=== PATIENT | male | born 1970 | race Two or more races ===

== ENCOUNTER 2017-05-08 06:59 | Inpatient (IN) | payer OTHER ==
[2017-05-08] VITALS (19 sets, daily range): BP systolic 96–141; BP diastolic 60–91
[~2017-05-08] VITALS: Ht 170.2 cm; Wt 51.7 kg
[2017-05-08] MEDS ORDERED: IPRATRPIUM/ALBUTEROL 0.5/2.5MG 3 ML NEBU. NEB ONE (07:15)
--- NOTE | 2017-05-08 07:32 | PHYS DOC ---
Past Medical History Past Medical History: Diabetes-Type II Past Surgical History: No Surgical History Alcohol Use: Occasionally Drug Use: None Adult General Chief Complaint Chief Complaint: SHORTNESS OF BREATH HPI HPI Patient is a 46 year old male who presents with shortness of breath, chest pain. He states his symptoms started about 10 days ago on when he came home from work and said he didn't feel well all day long. He's been complaining about some right-sided rib/lung pain and back pain. He denied any nausea vomiting or diarrhea. He states he feels short of breath. He's been having a nonproductive cough for the last several days. He denies any hemoptysis. He denies any tobacco abuse history or alcohol abuse. He states he does drink but he drinks about 12 beers in a week. He hasn't done that for over the last 2 weeks. He is brought in by his family he states that he was diagnosed with possible pneumonia several months ago. According family is also been urinating frequently. His sister diagnosed him with diabetes because she has diabetes and she checked his sugars and is been over 200 recently. According family he refuses to go to a physician and hasn't seen one for some time. Review of Systems Review of Systems Constitutional: Denies fever or chills [] Eyes: Denies change in visual acuity, redness, or eye pain [] HENT: Denies nasal congestion or sore throat [] Respiratory: Positive for shortness of breath Cardiovascular: No additional information not addressed in HPI [] GI: Denies abdominal pain, nausea, vomiting, bloody stools or diarrhea [] : Denies dysuria or hematuria [] Musculoskeletal: Denies back pain or joint pain [] Integument: Denies rash or skin lesions [] Neurologic: Denies headache, focal weakness or sensory changes [] Endocrine: Denies polyuria or polydipsia [] Current Medications Current Medications Current Medications Medications (Trade) Dose Ordered Sig/Angelina Start Time Stop Time Status Last Admin Dose Admin Albuterol/ Ipratropium (Duoneb) 3 ml 1X ONCE 05/08/17 07:15 05/08/17 07:17 DC 05/08/17 07:23 3 ML Allergies Allergies Allergies Coded Allergies Type Severity Reaction Last Updated Verified No Known Drug Allergies 05/08/17 No Physical Exam Physical Exam Constitutional: Well developed, well nourished, no acute distress, non-toxic appearance. [] HENT: Normocephalic, atraumatic, bilateral external ears normal, oropharynx moist, no oral exudates, nose normal. [] Eyes: PERRLA, EOMI, conjunctiva normal, no discharge. [] Neck: Normal range of motion, no tenderness, supple, no stridor. [] Cardiovascular:Heart rate regular rhythm, tachycardic, no murmur [] Lungs & Thorax: Tachypnea with expiratory wheezing on the left Abdomen: Bowel sounds normal, soft, no tenderness, no masses, no pulsatile masses. [] Skin: Warm, dry, no erythema, no rash. [] Back: No tenderness, no CVA tenderness. [] Extremities: No tenderness, no cyanosis, no clubbing, ROM intact, no edema. [] Neurologic: Alert and oriented X 3, normal motor function, normal sensory function, no focal deficits noted. [] Psychologic: Affect normal, judgement normal, mood normal. [] Current Patient Data Vital Signs Vital Signs Date Time Temp Pulse Resp B/P (MAP) Pulse Ox O2 Delivery O2 Flow Rate FiO2 05/08/17 07:33 99 Room Air 05/08/17 07:04 97.6 118 32 151/90 (110) 97.6 Lab Values Laboratory Tests Test 05/08/17 07:15 05/08/17 07:20 05/08/17 07:45 O2 Saturation 97 % (92-99) Arterial Blood pH 7.14 (7.35-7.45) *L Arterial Blood pCO2 at Patient Temp < 15 mmHg (35-46) *L Arterial Blood pO2 at Patient Temp 104 mmHg (75-108) Arterial Blood HCO3 4 mmol/L (21-28) L Arterial Blood Base Excess -23 mmol/L (-3-3) L Oxyhemoglobin 96.6 % Methemoglobin 0.4 % (0.0-1.9) Carbon Monoxide, Quantitative 0.1 % (0.0-1.9) FiO2 21 White Blood Count 38.7 x10^3/uL (4.0-11.0) H Red Blood Count 5.26 x10^6/uL (4.30-5.70) Hemoglobin 15.4 g/dL (13.0-17.5) Hematocrit 47.4 % (39.0-53.0) Mean Corpuscular Volume 90 fL (79-100) Mean Corpuscular Hemoglobin 29 pg (25-35) Mean Corpuscular Hemoglobin Concent 33 g/dL (31-37) Red Cell Distribution Width 14.3 % (11.5-14.5) Platelet Count 696 x10^3/uL (140-400) H Neutrophils (%) (Auto) 93 % (31-73) H Lymphocytes (%) (Auto) 4 % (24-48) L Monocytes (%) (Auto) 3 % (0-9) Eosinophils (%) (Auto) 0 % (0-3) Basophils (%) (Auto) 1 % (0-3) Neutrophils # (Auto) 36.1 x10^3uL (1.8-7.7) H Lymphocytes # (Auto) 1.3 x10^3/uL (1.0-4.8) Monocytes # (Auto) 1.1 x10^3/uL (0.0-1.1) Eosinophils # (Auto) 0.0 x10^3/uL (0.0-0.7) Basophils # (Auto) 0.2 x10^3/uL (0.0-0.2) Platelet Estimate Pending Prothrombin Time 16.2 SEC (11.7-14.0) H Prothrombin Time INR 1.4 (0.8-1.1) H Sodium Level 130 mmol/L (136-145) L Potassium Level 3.0 mmol/L (3.5-5.1) L Chloride Level 92 mmol/L (98-107) L Carbon Dioxide Level 7 mmol/L (21-32) *L Anion Gap 31 (6-14) H Blood Urea Nitrogen 19 mg/dL (8-26) Creatinine 1.2 mg/dL (0.7-1.3) Estimated GFR (Cockcroft-Gault) 65.8 Glucose Level 351 mg/dL (70-99) H Lactic Acid Level 2.6 mmol/L (0.4-2.0) H Calcium Level 10.7 mg/dL (8.5-10.1) H Phosphorus Level 3.5 mg/dL (2.6-4.7) Magnesium Level 2.3 mg/dL (1.8-2.4) Total Bilirubin 0.5 mg/dL (0.2-1.0) Direct Bilirubin 0.1 mg/dL (0.0-0.2) Aspartate Amino Transferase (AST) 13 U/L (15-37) L Alanine Aminotransferase (ALT) 11 U/L (16-63) L Alkaline Phosphatase 291 U/L (46-116) H Creatine Kinase 36 U/L (39-308) L Creatine Kinase MB (Mass) < 0.5 ng/mL (0.0-3.6) Creatine Kinase MB Relative Index % (0-4) Troponin I Quantitative < 0.017 ng/mL (0.000-0.055) VP-Bji-X-Type Natriuretic Peptide 318 pg/mL (0-124) H Total Protein 9.7 g/dL (6.4-8.2) H Albumin 2.2 g/dL (3.4-5.0) L Lipase 3223 U/L (73-393) H Thyroid Stimulating Hormone (TSH) 0.884 uIU/mL (0.358-3.74) Glucose (Fingerstick) 346 mg/dL (70-99) H Laboratory Tests 05/08/17 07:20 Laboratory Tests 05/08/17 07:20 EKG EKG EKG shows sinus tachycardia 313 bpm without any concerning ST elevations or T- wave inversions, diffuse artifact noted, QTC 439 ms, normal axis, as interpreted by me. Radiology/Procedures Radiology/Procedures [facility] [address] [place] [place], [place] [id number] IMAGING REPORT Signed PATIENT: KRISTYN EWING ACCOUNT: [id number] : 1970 LOCATION: ER AGE: 46 SEX: M EXAM STATUS: PRE ER ORD. PHYSICIAN: CHAYO CARABALLO MD REASON: soa PROCEDURE: PORTABLE CHEST 1V AP portable chest radiograph 05/08/2017 Clinical History: Shortness of breath since earlier today. Diabetes. An AP portable erect digital radiograph of the chest was obtained. No previous studies are available for comparison. The cardiac and mediastinal silhouettes are within normal limits in size and duration. Confluent infiltrates are seen involving the left upper lobe and right lower lobe. No pneumothorax or pleural effusion is seen. The osseous structures are grossly intact. Impression: Areas of infiltrate are seen involving the left upper lobe and right lower lobe. DICTATED and SIGNED BY: KAELA PACHECO MD DATE: 05/08/17 0756 CC: CHAYO CARABALLO MD ~ Impressions: DKA Atypical pneumonia New Diagnoses of diabetes Course & Med Decision Making Course & Med Decision Making Pertinent Labs and Imaging studies reviewed. (See chart for details) She presents with tachypnea breathing gradient 30 times a minute. ABG shows pH is 7.13, PCO2 of 11, bicarbonate 3. His sugar is greater than 300 on his Accu- Chek. With greater than 80 ketones in his urine. His chest x-ray is consistent with atypical pneumonia. We'll start Azo throat, Rocephin, and the DKA protocol with IV insulin. I did order 1 L normal saline in addition to the DKA protocol. He is being admitted to the ICU in stable but critical condition at this time. Spoke with Dr. Lopez regarding the patient's clinical story, labs value, x-ray and vitals. Critical care time: greater than 55 minutes of critical care time was used on this patient excluding procedures. Dragon Disclaimer Dragon Disclaimer This electronic medical record was generated, in whole or in part, using a voice recognition dictation system. Departure Departure Impression: Primary Impression: DKA (diabetic ketoacidosis) Disposition: ADMITTED INPATIENT Admitting Physician: Crystal Lopez Condition: GUARDED Problem Qualifiers Primary Impression: DKA (diabetic ketoacidosis) Diabetes mellitus type: other specified (including FLY) Diabetes mellitus complication detail: without coma Qualified Codes: E13.10 - Other specified diabetes mellitus with ketoacidosis without coma CHAYO CARABALLO MD May 08, 2017 07:32
[2017-05-08 07:44] LABS: INR 1.4 (0.8-1.1); PROTHROMBIN TIME PATIENT 16.2 SEC (11.7-14.0)
[2017-05-08 07:48] LABS: BASO # 0.2 x10^3/uL (0.0-0.2); BASO % 1 % (0-3); EOS % 0 % (0-3); HEMATOCRIT 47.4 % (39.0-53.0); HEMOGLOBIN 15.4 g/dL (13.0-17.5); LYMPH # 1.3 x10^3/uL (1.0-4.8); LYMPH % 4 % (24-48); MEAN CORPUSCULAR HEMOGLOBIN 29 pg (25-35); MEAN CORPUSCULAR HGB CONC 33 g/dL (31-37); MEAN CORPUSCULAR VOLUME 90 fL (79-100); MONO % 3 % (0-9); NEUT % 93 % (31-73); PLATELET COUNT 696 x10^3/uL (140-400); RED BLOOD COUNT 5.26 x10^6/uL (4.30-5.70); RED CELL DISTRIBUTION WIDTH 14.3 % (11.5-14.5); WHITE BLOOD COUNT 38.7 x10^3/uL (4.0-11.0)
[2017-05-08 07:49] LABS: ALBUMIN 2.2 g/dL (3.4-5.0); CALCIUM 10.7 mg/dL (8.5-10.1); CREATININE 1.2 mg/dL (0.7-1.3); DIRECT BILIRUBIN 0.1 mg/dL (0.0-0.2); GFR 65.8; MAGNESIUM 2.3 mg/dL (1.8-2.4); TOTAL BILIRUBIN 0.5 mg/dL (0.2-1.0); TOTAL PROTEIN 9.7 g/dL (6.4-8.2)
[2017-05-08] MEDS ORDERED: IV NORMAL SALINE 1000ML BAG 1,000 ML IV SCH (07:52)
[2017-05-08] MEDS ORDERED: IV 1/2 NORMAL SALINE 1,000 ML IV SCH (07:53)
[2017-05-08] MEDS: IV 1/2 NORMAL SALINE 1,000 ML IV SCH ×2 (07:55→11:55)
[2017-05-08 07:57] LABS: CKMB MASS < 0.5 ng/mL (0.0-3.6); CREATINE KINASE 36 U/L (39-308)
[2017-05-08] MEDS ORDERED: AZITHRMYCN 500MG IVPB FOR OMNI 250 ML IV ONE (08:00)
[2017-05-08] MEDS ORDERED: IV NORMAL SALINE 1000ML BAG 1,000 ML IV ONE (08:00)
[2017-05-08] MEDS ORDERED: INSULIN,REGULAR 150 UNIT DRIP 150 ML IV ONE (08:00)
[2017-05-08] MEDS ORDERED: POTASSIUM CHLORIDE 10MEQ 100 ML IV PRN ×2 (08:00)
[2017-05-08] MEDS ORDERED: INSULIN REGULAR VIAL 150 UNIT in 0.9 % SODIUM CHLORIDE 150ML 150 ML IV PRN (08:00)
--- NOTE | 2017-05-08 08:01 | RAD ---
AP portable chest radiograph 05/08/2017 Clinical History: Shortness of breath since earlier today. Diabetes. An AP portable erect digital radiograph of the chest was obtained. No previous studies are available for comparison. The cardiac and mediastinal silhouettes are within normal limits in size and duration. Confluent infiltrates are seen involving the left upper lobe and right lower lobe. No pneumothorax or pleural effusion is seen. The osseous structures are grossly intact. Impression: Areas of infiltrate are seen involving the left upper lobe and right lower lobe.
[2017-05-08 08:24] LABS: BASE EXCESS COOX -23 mmol/L (-3-3); CARBON MONOXIDE 0.1 % (0.0-1.9); HCO3 COOX 4 mmol/L (21-28); METHEMOGLOBIN 0.4 % (0.0-1.9); OXYHEMOGLOBIN 96.6 %; PO2 COOX 104 mmHg (75-108); SAT O2 COOX 97 % (92-99)
[2017-05-08] MEDS ORDERED: ONDANSETRON PF 4 MG/2 ML VIAL. IV PRN (08:30)
[2017-05-08] MEDS: POTASSIUM CHLORIDE 10MEQ 100 ML IV PRN ×4 (08:40→13:10)
[2017-05-08 09:10] LABS: PH COOX 7.14 (7.35-7.45)
[2017-05-08 09:11] LABS: FIO2 COOX 21; PCO2 COOX < 15 mmHg (35-46)
[2017-05-08 09:17] LABS: BILIRUBIN,URINE NEGATIVE (NEG); GLUCOSE,URINE >=1000 mg/dL (NEG); NITRITE,URINE NEGATIVE (NEG); PROTEIN,URINE 100 mg/dL (NEG-TRACE); UROBILINOGEN,URINE 0.2 mg/dL (0.2 mg/dL)
[2017-05-08 09:23] LABS: BARBITURATES NEG (NEG); BENZODIAZEPINES NEG (NEG); CANNABINOIDS NEG (NEG); COCAINE NEG (NEG); METHADONE NEG (NEG); OPIATES NEG (NEG); PHENCYCLIDINE NEG (NEG)
[2017-05-08 09:40] LABS: BACTERIA,URINE FEW /HPF (0-FEW); SQUAMOUS EPITHELIAL CELL,UR FEW /LPF
[2017-05-08] MEDS: LISINOPRIL 10 MG TABLET PO SCH (11:00)
--- NOTE | 2017-05-08 11:17 | HP ---
ADMIT DATE: 05/08/2017 CHIEF COMPLAINT: Shortness of breath. HISTORY OF PRESENT ILLNESS: The patient is a 46-year-old who presented to the Emergency Room with shortness of breath and chest pain. His symptoms started about 10 days ago, localized more on the right side of his rib cage as well as towards the back. He has shortness of breath, especially with breathing, has a nonproductive cough but without any sputum production or hemoptysis. No sick contacts at home. Does not smoke. In addition, family relates that his sister checked his blood sugar as she is diabetic and found his to be over 200 recently. The patient apparently refused to see a physician. In the ER, he was found with diabetic ketoacidosis and therefore admitted to the ICU on insulin drip. PAST MEDICAL HISTORY: Diabetes. FAMILY HISTORY: Sister with diabetes. SOCIAL HISTORY: Lives with family. Denies tobacco or drug use. Drinks admittedly 12 beers. ALLERGIES: No known drug allergies. MEDICATIONS: None. REVIEW OF SYSTEMS: The patient currently asleep and unable to answer. PHYSICAL EXAMINATION: VITAL SIGNS: Today, show a blood pressure of 162/104, heart rate at 100, respiratory rate at 35. GENERAL: This is a malnourished 46-year-old gentleman, sleeping peacefully, in no acute distress. HEENT: Shows no scleral icterus. NECK: Supple. LUNGS: Clear. HEART: Regular rate and rhythm, mildly tachycardic. ABDOMEN: Has positive bowel sounds, soft, nontender. EXTREMITIES: Show no edema. SKIN: Warm, soft and dry without any rash. LABORATORY DATA: CBC with a WBC of 38.7, hemoglobin 15.4, platelets of 696, differential with 93% neutrophils. Chemistries with a BUN and creatinine of 19 and 1.2, sodium 130, potassium 3.0, carbon dioxide at 7, lactate at 2.6. LFTs with normal transaminases, alkaline phosphatase at 291, albumin at 2.2. Troponin is negative. Tox screen negative. UA with greater than 1000 glucose. IMAGING: Chest x-ray, areas of infiltrates seen in the left upper lobe and right lower lobe. ASSESSMENT AND PLAN: The patient is a 46-year-old gentleman, presenting with respiratory symptoms and signs of bilateral pneumonia. We will start him on Levaquin. Incidentally, he is also found with diabetic ketoacidosis. We will start him on insulin drip and diabetic ketoacidosis protocol in the intensive care unit. Serial labs will be obtained. He also has accelerated hypertension, untreated. We will start him on lisinopril as well. For prophylaxis, he will be started on Lovenox subQ for now. MANOLO VARELA MD DR: ALLAN/nts JOB#: [id number] / [id number] IGOR
--- NOTE | 2017-05-08 12:12 | EKG ---
[facility] [address] [place] [address] Test Date: 2017-05-08 Test Time: 07:22:18 Pat Name: KRISTYN EWING Department: Room: 109 1 Gender: M Adjunct Political Science Instructor: : 1970 Requested By: CHAYO CARABALLO Order Number: [id number] Reading MD: Ger Aggarwal Measurements Intervals [place] Rate: 113 P: 68 [place]: 110 QRS: 62 QRSD: 104 T: 90 QT: 316 QTc: 439 Interpretive Statements SINUS TACHYCARDIA Electronically Signed On 05-17-2017 10:28:34 CDT by Ger Aggarwal
[2017-05-08 12:25] LABS: PLT ESTIMATE INCREASED (ADEQUATE)
[2017-05-08 12:39] LABS: ALBUMIN 1.9 g/dL (3.4-5.0); ALBUMIN/GLOBULIN RATIO 0.3 (1.0-1.7); CALCIUM 9.8 mg/dL (8.5-10.1); CREATININE 1.1 mg/dL (0.7-1.3); GFR 72.7; TOTAL BILIRUBIN 0.4 mg/dL (0.2-1.0); TOTAL PROTEIN 8.5 g/dL (6.4-8.2)
[2017-05-08 12:49] LABS: POTASSIUM 2.5 mmol/L (3.5-5.1)
[2017-05-08] MEDS ORDERED: fentaNYL PF VIAL 100 MCG/2 ML VIAL ONE ×2 (15:24)
[2017-05-08] MEDS: POTASSIUM CHLORIDE 10MEQ 100 ML IV SCH ×4 (17:37→21:04)
[2017-05-08 18:23] LABS: ALBUMIN 1.6 g/dL (3.4-5.0); ALBUMIN/GLOBULIN RATIO 0.3 (1.0-1.7); CALCIUM 9.6 mg/dL (8.5-10.1); CREATININE 0.8 mg/dL (0.7-1.3); TOTAL BILIRUBIN 0.2 mg/dL (0.2-1.0); TOTAL PROTEIN 7.3 g/dL (6.4-8.2)
[2017-05-08 18:29] LABS: POTASSIUM 2.1 mmol/L (3.5-5.1)
[2017-05-08] MEDS ORDERED: INSULIN,REGULAR 150 UNIT DRIP 150 ML IV PRN (18:45)
[2017-05-08] MEDS ORDERED: METF500T4 PO (19:26)
[2017-05-08] MEDS: IV DEXTROSE 5 %-0.45 % NACL 1,000 ML IV SCH (21:08)
[2017-05-08 22:14] LABS: ANION GAP 14 (6-14); BLOOD UREA NITROGEN 11 mg/dL (8-26); CALCIUM 9.1 mg/dL (8.5-10.1); CARBON DIOXIDE 16 mmol/L (21-32); CHLORIDE 106 mmol/L (98-107); CREATININE 0.7 mg/dL (0.7-1.3); GFR 122.5; GLUCOSE 205 mg/dL (70-99); MAGNESIUM 1.9 mg/dL (1.8-2.4); SODIUM 136 mmol/L (136-145)
[2017-05-08 22:16] LABS: POTASSIUM 1.9 mmol/L (3.5-5.1)
[2017-05-08 22:27] LABS: PHOSPHORUS < 0.5 mg/dL (2.6-4.7)
[2017-05-08] MEDS ORDERED: POTASSIUM PHOSPHATE DIBASIC 13.6 MMOL in IV NORMAL SALINE 250ML 250 ML IV ONE (23:00)
[2017-05-08] MEDS ORDERED: POTASSIUM CHLORIDE 20 MEQ TABLET.ER. PO ONE (23:30)
[2017-05-09] VITALS (19 sets, daily range): BP systolic 94–117; BP diastolic 52–82
[2017-05-09] MEDS: IV DEXTROSE 5 %-0.45 % NACL 1,000 ML IV SCH ×2 (00:44→05:48)
[2017-05-09] MEDS ORDERED: POTASSIUM PHOSPHATE DIBASIC 13.6 MMOL in IV NORMAL SALINE 250ML 250 ML IV ONE (01:00)
[2017-05-09 04:30] LABS: BASO # 0.1 x10^3/uL (0.0-0.2); BASO % 0 % (0-3); EOS % 0 % (0-3); HEMATOCRIT 38.3 % (39.0-53.0); HEMOGLOBIN 12.7 g/dL (13.0-17.5); LYMPH # 0.6 x10^3/uL (1.0-4.8); LYMPH % 2 % (24-48); MEAN CORPUSCULAR HEMOGLOBIN 28 pg (25-35); MEAN CORPUSCULAR HGB CONC 33 g/dL (31-37); MEAN CORPUSCULAR VOLUME 85 fL (79-100); MONO % 5 % (0-9); NEUT % 93 % (31-73); PLATELET COUNT 485 x10^3/uL (140-400); RED BLOOD COUNT 4.51 x10^6/uL (4.30-5.70); WHITE BLOOD COUNT 30.5 x10^3/uL (4.0-11.0)
[2017-05-09 04:49] LABS: CALCIUM 9.3 mg/dL (8.5-10.1); CREATININE 0.5 mg/dL (0.7-1.3); GFR 180.6
[2017-05-09 04:53] LABS: MAGNESIUM 1.9 mg/dL (1.8-2.4); PHOSPHORUS 1.1 mg/dL (2.6-4.7)
[2017-05-09] MEDS: POTASSIUM CHLORIDE 10MEQ 100 ML IV SCH ×7 (05:47→23:50)
[2017-05-09] MEDS: POTASSIUM CHLORIDE 20 MEQ TABLET.ER. PO SCH ×2 (06:00→06:01)
[2017-05-09] MEDS ORDERED: SODIUM PHOSPHATE 20 MMOL in IV DEXTROSE 5% 250 ML IV ONE (06:00)
--- NOTE | 2017-05-09 08:52 | PDOC ---
PROGRESS NOTES Chief Complaint Chief Complaint Bilat PNA DKA ASSESSMENT AND PLAN: 1. PNA: bilat infiltrates. on levaquin. 2. Sepsis: severe leukocytosis, mild tachycardia improving. 3. DKA: CO2 recovering. BG well controlled. switch to levemir and ISS. sister confirms that he had beens started on metformin 500 bid. 4. Accelerated HTN: at POA, now welll controlled on ELINA-I 5. Hypokalemia: severe. aggressive PO repletion, recheck in PM 6. Prophylaxis: lovenox History of Present Illness History of Present Illness feels better, no SOB. gen weak. Vitals Vitals Vital Signs Date Time Temp Pulse Resp B/P (MAP) Pulse Ox O2 Delivery O2 Flow Rate FiO2 05/09/17 08:00 97.8 95 30 109/75 (86) 98 Room Air 97.8 05/09/17 05:00 3.0 Physical Exam General: Alert, Oriented X3, Cooperative, No acute distress Heart: Regular rate Lungs: Crackles Abdomen: Normal bowel sounds, Soft, No tenderness Extremities: No edema Skin: No rashes Labs LABS Laboratory Tests Test 05/08/17 09:09 05/08/17 09:37 05/08/17 11:10 05/08/17 11:30 Urine Collection Type Unknown Urine Color Yellow Urine Clarity Clear Urine pH 6.0 Urine Specific [place] 1.025 Urine Protein 100 mg/dL (NEG-TRACE) Urine Glucose (UA) >=1000 mg/dL (NEG) Urine Ketones (Stick) >=80 mg/dL (NEG) Urine Blood Moderate (NEG) Urine Nitrite Negative (NEG) Urine Bilirubin Negative (NEG) Urine Urobilinogen Dipstick 0.2 mg/dL (0.2 mg/dL) Urine Leukocyte Esterase Negative (NEG) Urine RBC 11-20 /HPF (0-2) Urine WBC 5-10 /HPF (0-4) Urine Squamous Epithelial Cells Few /LPF Urine Bacteria Few /HPF (0-FEW) Urine Opiates Screen Neg (NEG) Urine Methadone Screen Neg (NEG) Urine Barbiturates Neg (NEG) Urine Phencyclidine Screen Neg (NEG) Urine Amphetamine/Methamphetamine Neg (NEG) Urine Benzodiazepines Screen Neg (NEG) Urine Cocaine Screen Neg (NEG) Urine Cannabinoids Screen Neg (NEG) Urine Ethyl Alcohol Neg (NEG) Glucose (Fingerstick) 128 mg/dL (70-99) 255 mg/dL (70-99) Lactic Acid Level 1.9 mmol/L (0.4-2.0) Test 05/08/17 12:10 05/08/17 13:01 05/08/17 14:20 05/08/17 14:26 Sodium Level 134 mmol/L (136-145) Potassium Level 2.5 mmol/L (3.5-5.1) Chloride Level 98 mmol/L (98-107) Carbon Dioxide Level 9 mmol/L (21-32) Anion Gap 27 (6-14) Blood Urea Nitrogen 18 mg/dL (8-26) Creatinine 1.1 mg/dL (0.7-1.3) Estimated GFR (Cockcroft-Gault) 72.7 BUN/Creatinine Ratio 16 (6-20) Glucose Level 267 mg/dL (70-99) Calcium Level 9.8 mg/dL (8.5-10.1) Total Bilirubin 0.4 mg/dL (0.2-1.0) Aspartate Amino Transf (AST/SGOT) 18 U/L (15-37) Alanine Aminotransferase (ALT/SGPT) 11 U/L (16-63) Alkaline Phosphatase 246 U/L (46-116) Total Protein 8.5 g/dL (6.4-8.2) Albumin 1.9 g/dL (3.4-5.0) Albumin/Globulin Ratio 0.3 (1.0-1.7) Glucose (Fingerstick) 226 mg/dL (70-99) 207 mg/dL (70-99) Troponin I Quantitative < 0.017 ng/mL (0.000-0.055) Ethyl Alcohol Level < 10 mg/dL (0-10) Test 05/08/17 14:30 05/08/17 15:49 05/08/17 16:54 05/08/17 17:55 Serum Osmolality 291 mOsm/Kg (279-304) 287 mOsm/Kg (279-304) Glucose (Fingerstick) 211 mg/dL (70-99) 234 mg/dL (70-99) Sodium Level 138 mmol/L (136-145) Potassium Level 2.1 mmol/L (3.5-5.1) Chloride Level 104 mmol/L (98-107) Carbon Dioxide Level 15 mmol/L (21-32) Anion Gap 19 (6-14) Blood Urea Nitrogen 15 mg/dL (8-26) Creatinine 0.8 mg/dL (0.7-1.3) Estimated GFR (Cockcroft-Gault) 105.0 BUN/Creatinine Ratio 19 (6-20) Glucose Level 225 mg/dL (70-99) Lactic Acid Level 2.4 mmol/L (0.4-2.0) Calcium Level 9.6 mg/dL (8.5-10.1) Total Bilirubin 0.2 mg/dL (0.2-1.0) Aspartate Amino Transf (AST/SGOT) 14 U/L (15-37) Alanine Aminotransferase (ALT/SGPT) 10 U/L (16-63) Alkaline Phosphatase 200 U/L (46-116) Total Protein 7.3 g/dL (6.4-8.2) Albumin 1.6 g/dL (3.4-5.0) Albumin/Globulin Ratio 0.3 (1.0-1.7) Test 05/08/17 18:00 05/08/17 19:06 05/08/17 20:17 05/08/17 21:23 Glucose (Fingerstick) 216 mg/dL (70-99) 199 mg/dL (70-99) 193 mg/dL (70-99) 197 mg/dL (70-99) Test 05/08/17 21:50 05/08/17 23:33 05/09/17 00:38 05/09/17 02:00 Sodium Level 136 mmol/L (136-145) Potassium Level 1.9 mmol/L (3.5-5.1) Chloride Level 106 mmol/L (98-107) Carbon Dioxide Level 16 mmol/L (21-32) Anion Gap 14 (6-14) Blood Urea Nitrogen 11 mg/dL (8-26) Creatinine 0.7 mg/dL (0.7-1.3) Estimated GFR (Cockcroft-Gault) 122.5 Glucose Level 205 mg/dL (70-99) Calcium Level 9.1 mg/dL (8.5-10.1) Phosphorus Level < 0.5 mg/dL (2.6-4.7) Magnesium Level 1.9 mg/dL (1.8-2.4) Troponin I Quantitative < 0.017 ng/mL (0.000-0.055) Glucose (Fingerstick) 166 mg/dL (70-99) 151 mg/dL (70-99) 120 mg/dL (70-99) Test 05/09/17 03:19 05/09/17 04:00 05/09/17 04:49 05/09/17 06:14 Glucose (Fingerstick) 113 mg/dL (70-99) 106 mg/dL (70-99) 110 mg/dL (70-99) White Blood Count 30.5 x10^3/uL (4.0-11.0) Red Blood Count 4.51 x10^6/uL (4.30-5.70) Hemoglobin 12.7 g/dL (13.0-17.5) Hematocrit 38.3 % (39.0-53.0) Mean Corpuscular Volume 85 fL (79-100) Mean Corpuscular Hemoglobin 28 pg (25-35) Mean Corpuscular Hemoglobin Concent 33 g/dL (31-37) Red Cell Distribution Width 14.0 % (11.5-14.5) Platelet Count 485 x10^3/uL (140-400) Neutrophils (%) (Auto) 93 % (31-73) Lymphocytes (%) (Auto) 2 % (24-48) Monocytes (%) (Auto) 5 % (0-9) Eosinophils (%) (Auto) 0 % (0-3) Basophils (%) (Auto) 0 % (0-3) Neutrophils # (Auto) 28.4 x10^3uL (1.8-7.7) Lymphocytes # (Auto) 0.6 x10^3/uL (1.0-4.8) Monocytes # (Auto) 1.4 x10^3/uL (0.0-1.1) Eosinophils # (Auto) 0.0 x10^3/uL (0.0-0.7) Basophils # (Auto) 0.1 x10^3/uL (0.0-0.2) Sodium Level 140 mmol/L (136-145) Potassium Level 2.0 mmol/L (3.5-5.1) Chloride Level 106 mmol/L (98-107) Carbon Dioxide Level 19 mmol/L (21-32) Anion Gap 15 (6-14) Blood Urea Nitrogen 7 mg/dL (8-26) Creatinine 0.5 mg/dL (0.7-1.3) Estimated GFR (Cockcroft-Gault) 180.6 Glucose Level 109 mg/dL (70-99) Lactic Acid Level 1.9 mmol/L (0.4-2.0) Calcium Level 9.3 mg/dL (8.5-10.1) Phosphorus Level 1.1 mg/dL (2.6-4.7) Magnesium Level 1.9 mg/dL (1.8-2.4) Test 05/09/17 07:38 Glucose (Fingerstick) 101 mg/dL (70-99) MANOLO VARELA MD May 09, 2017 08:52
[2017-05-09] MEDS: LISINOPRIL 10 MG TABLET PO SCH (08:59)
[2017-05-09 10:46] LABS: ALBUMIN 1.5 g/dL (3.4-5.0); ALBUMIN/GLOBULIN RATIO 0.3 (1.0-1.7); CREATININE 0.4 mg/dL (0.7-1.3); GFR 233.7; TOTAL BILIRUBIN 0.2 mg/dL (0.2-1.0); TOTAL PROTEIN 7.2 g/dL (6.4-8.2)
[2017-05-09 10:48] LABS: POTASSIUM 2.3 mmol/L (3.5-5.1)
[2017-05-09] MEDS ORDERED: POTASSIUM CHLORIDE 20 MEQ TABLET.ER. PO ONE ×4 (11:00→19:15)
[2017-05-09] MEDS ORDERED: DEXTROSE 50% 25 GM / 50ML DISP.SYRIN. IV PRN (11:00)
[2017-05-09] MEDS ORDERED: INSULIN DETEMIR 300 UNITS/3 ML INSULN.PEN. SQ ONE (11:00)
[2017-05-09] MEDS: INSULIN ASPART 300 UNITS/3 ML INSULN.PEN SQ SCH ×3 (12:23→21:00)
[2017-05-09 17:04] LABS: MAGNESIUM 1.9 mg/dL (1.8-2.4); PHOSPHORUS 1.9 mg/dL (2.6-4.7)
[2017-05-09] MEDS: INSULIN DETEMIR 300 UNITS/3 ML INSULN.PEN. SQ SCH (19:28)
[2017-05-10] VITALS (23 sets, daily range): BP systolic 86–119; BP diastolic 53–79
[2017-05-10] MEDS: POTASSIUM CHLORIDE 10MEQ 100 ML IV SCH ×5 (02:16→10:48)
[2017-05-10 04:53] LABS: BASO % 0 % (0-3); EOS % 0 % (0-3); HEMATOCRIT 36.1 % (39.0-53.0); HEMOGLOBIN 12.6 g/dL (13.0-17.5); LYMPH # 0.8 x10^3/uL (1.0-4.8); LYMPH % 3 % (24-48); MEAN CORPUSCULAR HEMOGLOBIN 29 pg (25-35); MEAN CORPUSCULAR HGB CONC 35 g/dL (31-37); MEAN CORPUSCULAR VOLUME 84 fL (79-100); MONO % 3 % (0-9); NEUT % 95 % (31-73); PLATELET COUNT 453 x10^3/uL (140-400); RED BLOOD COUNT 4.31 x10^6/uL (4.30-5.70); WHITE BLOOD COUNT 30.9 x10^3/uL (4.0-11.0)
[2017-05-10 05:15] LABS: CALCIUM 9.1 mg/dL (8.5-10.1); CREATININE 0.5 mg/dL (0.7-1.3); GFR 180.6
[2017-05-10 05:26] LABS: POTASSIUM 2.6 mmol/L (3.5-5.1)
[2017-05-10] MEDS ORDERED: POTASSIUM CHLORIDE 20 MEQ TABLET.ER. PO ONE ×3 (06:00→17:00)
[2017-05-10] MEDS: INSULIN ASPART 300 UNITS/3 ML INSULN.PEN SQ SCH ×4 (08:00→20:30)
[2017-05-10] MEDS: INSULIN DETEMIR 300 UNITS/3 ML INSULN.PEN. SQ SCH ×2 (08:21→20:30)
[2017-05-10] MEDS: LISINOPRIL 10 MG TABLET PO SCH (09:00)
--- NOTE | 2017-05-10 09:51 | PDOC ---
PROGRESS NOTES Chief Complaint Chief Complaint Bilat PNA DKA ASSESSMENT AND PLAN: 1. PNA: bilat infiltrates. on levaquin. 2. Sepsis: severe leukocytosis, mild tachycardia improving. 3. Leukocytosis: trhombocytosis: exuberant BM response. monitor 4. DKA: CO2 recovering. BG well controlled. switch to levemir and ISS. sister confirms that he had beens started on metformin 500 bid. 5. Accelerated HTN: at POA, now welll controlled on ELINA-I 6. Hypokalemia: severe. aggressive PO repletion, recheck in PM 7. Prophylaxis: lovenox History of Present Illness History of Present Illness feels much better. coughing more, no SOB, but HERNANDEZ Vitals Vitals Vital Signs Date Time Temp Pulse Resp B/P (MAP) Pulse Ox O2 Delivery O2 Flow Rate FiO2 05/10/17 08:00 Nasal Cannula 2.0 05/10/17 06:02 92 24 107/69 (82) 94 05/10/17 00:00 99.5 99.5 Physical Exam General: Alert, Oriented X3, Cooperative, No acute distress Heart: Regular rate Lungs: Crackles Abdomen: Normal bowel sounds, Soft, No tenderness Extremities: No edema Skin: No rashes Labs LABS Laboratory Tests Test 05/09/17 10:08 05/09/17 12:18 05/09/17 17:03 05/09/17 18:00 Sodium Level 135 mmol/L (136-145) Potassium Level 2.3 mmol/L (3.5-5.1) 2.5 mmol/L (3.5-5.1) Chloride Level 103 mmol/L (98-107) Carbon Dioxide Level 19 mmol/L (21-32) Anion Gap 13 (6-14) Blood Urea Nitrogen 6 mg/dL (8-26) Creatinine 0.4 mg/dL (0.7-1.3) Estimated GFR (Cockcroft-Gault) 233.7 BUN/Creatinine Ratio 15 (6-20) Glucose Level 134 mg/dL (70-99) Calcium Level 9.0 mg/dL (8.5-10.1) Phosphorus Level 1.9 mg/dL (2.6-4.7) Magnesium Level 1.9 mg/dL (1.8-2.4) Total Bilirubin 0.2 mg/dL (0.2-1.0) Aspartate Amino Transf (AST/SGOT) 14 U/L (15-37) Alanine Aminotransferase (ALT/SGPT) 13 U/L (16-63) Alkaline Phosphatase 200 U/L (46-116) Total Protein 7.2 g/dL (6.4-8.2) Albumin 1.5 g/dL (3.4-5.0) Albumin/Globulin Ratio 0.3 (1.0-1.7) Glucose (Fingerstick) 239 mg/dL (70-99) 171 mg/dL (70-99) Test 05/09/17 19:22 05/10/17 04:35 05/10/17 06:40 05/10/17 08:16 Glucose (Fingerstick) 156 mg/dL (70-99) 85 mg/dL (70-99) 105 mg/dL (70-99) White Blood Count 30.9 x10^3/uL (4.0-11.0) Red Blood Count 4.31 x10^6/uL (4.30-5.70) Hemoglobin 12.6 g/dL (13.0-17.5) Hematocrit 36.1 % (39.0-53.0) Mean Corpuscular Volume 84 fL (79-100) Mean Corpuscular Hemoglobin 29 pg (25-35) Mean Corpuscular Hemoglobin Concent 35 g/dL (31-37) Red Cell Distribution Width 14.0 % (11.5-14.5) Platelet Count 453 x10^3/uL (140-400) Neutrophils (%) (Auto) 95 % (31-73) Lymphocytes (%) (Auto) 3 % (24-48) Monocytes (%) (Auto) 3 % (0-9) Eosinophils (%) (Auto) 0 % (0-3) Basophils (%) (Auto) 0 % (0-3) Neutrophils # (Auto) 29.2 x10^3uL (1.8-7.7) Lymphocytes # (Auto) 0.8 x10^3/uL (1.0-4.8) Monocytes # (Auto) 0.9 x10^3/uL (0.0-1.1) Eosinophils # (Auto) 0.0 x10^3/uL (0.0-0.7) Basophils # (Auto) 0.0 x10^3/uL (0.0-0.2) Sodium Level 134 mmol/L (136-145) Potassium Level 2.6 mmol/L (3.5-5.1) Chloride Level 100 mmol/L (98-107) Carbon Dioxide Level 26 mmol/L (21-32) Anion Gap 8 (6-14) Blood Urea Nitrogen 7 mg/dL (8-26) Creatinine 0.5 mg/dL (0.7-1.3) Estimated GFR (Cockcroft-Gault) 180.6 Glucose Level 87 mg/dL (70-99) Calcium Level 9.1 mg/dL (8.5-10.1) Magnesium Level 2.0 mg/dL (1.8-2.4) Nutrition Consultation Dietary Evaluation: Recommendations by RD: Dietary education by RD, Increase Calorie Intake Comments: REC advance to ADA diet within 24 - 48 hrs Will provide diabetes diet education at later date Expected Outcomes/Goals: PO intake to meet > 75% est needs Pt to verbalize basics of diabetic diet Interpretation of weight loss: >20% in 1 year Malnutrition Findings: Body Fat Depletion (Non Severe: Mild Depletion Weight Status: Appropriate MANOLO VARELA MD May 10, 2017 09:51
[2017-05-11] VITALS (15 sets, daily range): BP systolic 85–113; BP diastolic 53–83
[2017-05-11 06:10] LABS: BASO % 0 % (0-3); EOS % 0 % (0-3); HEMATOCRIT 36.6 % (39.0-53.0); HEMOGLOBIN 12.4 g/dL (13.0-17.5); LYMPH # 0.9 x10^3/uL (1.0-4.8); LYMPH % 4 % (24-48); MEAN CORPUSCULAR HEMOGLOBIN 29 pg (25-35); MEAN CORPUSCULAR HGB CONC 34 g/dL (31-37); MEAN CORPUSCULAR VOLUME 85 fL (79-100); MONO % 4 % (0-9); NEUT % 92 % (31-73); PLATELET COUNT 367 x10^3/uL (140-400); RED BLOOD COUNT 4.29 x10^6/uL (4.30-5.70); WHITE BLOOD COUNT 25.3 x10^3/uL (4.0-11.0)
[2017-05-11 06:22] LABS: CALCIUM 9.3 mg/dL (8.5-10.1); CREATININE 0.6 mg/dL (0.7-1.3); GFR 146.4; MAGNESIUM 2.3 mg/dL (1.8-2.4); POTASSIUM 4.1 mmol/L (3.5-5.1)
[2017-05-11] MEDS: INSULIN DETEMIR 300 UNITS/3 ML INSULN.PEN. SQ SCH ×2 (06:31→17:39)
[2017-05-11] MEDS: INSULIN ASPART 300 UNITS/3 ML INSULN.PEN SQ SCH ×4 (08:38→23:53)
[2017-05-11] MEDS: LISINOPRIL 10 MG TABLET PO SCH (08:40)
--- NOTE | 2017-05-11 09:54 | PDOC ---
PROGRESS NOTES Chief Complaint Chief Complaint Bilat PNA DKA ASSESSMENT AND PLAN: 1. PNA: bilat infiltrates. on levaquin. 2. Sepsis: severe leukocytosis, mild tachycardia improving. 3. Leukocytosis, thrombocytosis: exuberant BM response. monitor 4. DKA: CO2 recovering. BG fairly well controlled on levemir and ISS; bid dosing may require further adjustments 6. Hypokalemia: resolved 7. Hyponatremia: sl worse. off IVF. monitor for now; suspect some SIADH component from PNA 8. Prophylaxis: lovenox History of Present Illness History of Present Illness feels much better today. no SOB, CP Vitals Vitals Vital Signs Date Time Temp Pulse Resp B/P (MAP) Pulse Ox O2 Delivery O2 Flow Rate FiO2 05/11/17 09:00 96 23 106/66 (79) 95 Room Air 05/11/17 08:00 98.8 98.8 05/10/17 13:00 Physical Exam General: Alert, Oriented X3, Cooperative, No acute distress Heart: Regular rate Lungs: Crackles Abdomen: Normal bowel sounds, Soft, No tenderness Extremities: No edema Skin: No rashes Labs LABS Laboratory Tests Test 05/10/17 12:23 05/10/17 17:42 05/10/17 18:45 05/10/17 20:24 Glucose (Fingerstick) 144 mg/dL (70-99) 143 mg/dL (70-99) 130 mg/dL (70-99) Potassium Level 3.8 mmol/L (3.5-5.1) Test 05/11/17 05:48 05/11/17 06:27 05/11/17 08:36 White Blood Count 25.3 x10^3/uL (4.0-11.0) Red Blood Count 4.29 x10^6/uL (4.30-5.70) Hemoglobin 12.4 g/dL (13.0-17.5) Hematocrit 36.6 % (39.0-53.0) Mean Corpuscular Volume 85 fL (79-100) Mean Corpuscular Hemoglobin 29 pg (25-35) Mean Corpuscular Hemoglobin Concent 34 g/dL (31-37) Red Cell Distribution Width 14.0 % (11.5-14.5) Platelet Count 367 x10^3/uL (140-400) Neutrophils (%) (Auto) 92 % (31-73) Lymphocytes (%) (Auto) 4 % (24-48) Monocytes (%) (Auto) 4 % (0-9) Eosinophils (%) (Auto) 0 % (0-3) Basophils (%) (Auto) 0 % (0-3) Neutrophils # (Auto) 23.3 x10^3uL (1.8-7.7) Lymphocytes # (Auto) 0.9 x10^3/uL (1.0-4.8) Monocytes # (Auto) 1.0 x10^3/uL (0.0-1.1) Eosinophils # (Auto) 0.0 x10^3/uL (0.0-0.7) Basophils # (Auto) 0.0 x10^3/uL (0.0-0.2) Sodium Level 131 mmol/L (136-145) Potassium Level 4.1 mmol/L (3.5-5.1) Chloride Level 94 mmol/L (98-107) Carbon Dioxide Level 31 mmol/L (21-32) Anion Gap 6 (6-14) Blood Urea Nitrogen 14 mg/dL (8-26) Creatinine 0.6 mg/dL (0.7-1.3) Estimated GFR (Cockcroft-Gault) 146.4 Glucose Level 196 mg/dL (70-99) Calcium Level 9.3 mg/dL (8.5-10.1) Magnesium Level 2.3 mg/dL (1.8-2.4) Glucose (Fingerstick) 186 mg/dL (70-99) 164 mg/dL (70-99) Nutrition Consultation Dietary Evaluation: Recommendations by RD: Dietary education by RD, Increase Calorie Intake Comments: Encouraged continued good PO intake Provided diabetes diet education Expected Outcomes/Goals: PO intake to meet > 75% est needs Pt to verbalize basics of diabetic diet Interpretation of weight loss: >20% in 1 year Malnutrition Findings: Body Fat Depletion (Non Severe: Mild Depletion Weight Status: Appropriate MANOLO VARELA MD May 11, 2017 09:54
[2017-05-11] MEDS ORDERED: ACETAMINOPHEN 325 MG TABLET. PO PRN (20:30)
[2017-05-11] MEDS ORDERED: IBUPROFEN 600 MG TABLET. PO PRN (20:30)
[2017-05-11] MEDS ORDERED: guaiFENesin DM 200MG/20MG 10 ML SYRUP PO PRN (20:30)
[2017-05-11] MEDS ORDERED: traMADol 50 MG TABLET PO PRN (20:30)
[2017-05-12 03:23] VITALS: BP 101/66
[2017-05-12 03:55] LABS: CALCIUM 9.2 mg/dL (8.5-10.1); CREATININE 0.5 mg/dL (0.7-1.3); GFR 180.6; MAGNESIUM 2.1 mg/dL (1.8-2.4)
[2017-05-12 03:57] LABS: BASO % 0 % (0-3); EOS % 0 % (0-3); HEMATOCRIT 34.1 % (39.0-53.0); HEMOGLOBIN 11.4 g/dL (13.0-17.5); LYMPH # 1.6 x10^3/uL (1.0-4.8); LYMPH % 10 % (24-48); MEAN CORPUSCULAR HEMOGLOBIN 29 pg (25-35); MEAN CORPUSCULAR HGB CONC 34 g/dL (31-37); MEAN CORPUSCULAR VOLUME 86 fL (79-100); MONO % 11 % (0-9); NEUT % 78 % (31-73); PLATELET COUNT 333 x10^3/uL (140-400); RED BLOOD COUNT 3.99 x10^6/uL (4.30-5.70); RED CELL DISTRIBUTION WIDTH 14.1 % (11.5-14.5); WHITE BLOOD COUNT 15.2 x10^3/uL (4.0-11.0)
[2017-05-12 08:00] VITALS: BP 94/63
[2017-05-12] MEDS: LISINOPRIL 10 MG TABLET PO SCH (08:26)
[2017-05-12] MEDS: INSULIN DETEMIR 300 UNITS/3 ML INSULN.PEN. SQ SCH (08:30)
[2017-05-12] MEDS: INSULIN ASPART 300 UNITS/3 ML INSULN.PEN SQ SCH ×2 (08:30→12:17)
[2017-05-12] MEDS ORDERED: POTASSIUM CHLORIDE 20 MEQ TABLET.ER. PO ONE (09:30)
[2017-05-12] MEDS ORDERED: ALBUTEROL SULFATE 2.5 MG/3 ML NEBU. NEB PRN (09:30)
[2017-05-12] MEDS ORDERED: metFORMIN 500 MG TABLET PO SCH (09:45)
[2017-05-12] MEDS ORDERED: INSU100V13 SQ (11:28)
[2017-05-12] MEDS ORDERED: LISI10TA2 PO (11:28)
[2017-05-12] MEDS ORDERED: LEVO500T59 PO (11:28)
--- NOTE | 2017-05-12 11:33 | PDOC3 ---
Discharge Summary Visit Information Date of Admission: May 08, 2017 Date of Discharge: May 12, 2017 Admitting Diagnosis Comment: Bilateral PNA, CAP SIRS POA, infectious no organ dyfcn HYponatremia, hypomagneseia replaced s/p DKA Brief Hospital Course Allergies Allergies Coded Allergies Type Severity Reaction Last Updated Verified No Known Drug Allergies 05/08/17 No Vital Signs Vital Signs Date Time Temp Pulse Resp B/P (MAP) Pulse Ox O2 Delivery O2 Flow Rate FiO2 05/12/17 08:26 77 94/63 05/12/17 08:00 98.6 16 96 Room Air 98.6 Lab Results Laboratory Tests Test 05/10/17 12:23 05/10/17 17:42 05/10/17 18:45 05/10/17 20:24 Glucose (Fingerstick) 144 mg/dL (70-99) 143 mg/dL (70-99) 130 mg/dL (70-99) Potassium Level 3.8 mmol/L (3.5-5.1) Test 05/11/17 05:48 05/11/17 06:27 05/11/17 08:36 05/11/17 11:49 White Blood Count 25.3 x10^3/uL (4.0-11.0) Red Blood Count 4.29 x10^6/uL (4.30-5.70) Hemoglobin 12.4 g/dL (13.0-17.5) Hematocrit 36.6 % (39.0-53.0) Mean Corpuscular Volume 85 fL (79-100) Mean Corpuscular Hemoglobin 29 pg (25-35) Mean Corpuscular Hemoglobin Concent 34 g/dL (31-37) Red Cell Distribution Width 14.0 % (11.5-14.5) Platelet Count 367 x10^3/uL (140-400) Neutrophils (%) (Auto) 92 % (31-73) Lymphocytes (%) (Auto) 4 % (24-48) Monocytes (%) (Auto) 4 % (0-9) Eosinophils (%) (Auto) 0 % (0-3) Basophils (%) (Auto) 0 % (0-3) Neutrophils # (Auto) 23.3 x10^3uL (1.8-7.7) Lymphocytes # (Auto) 0.9 x10^3/uL (1.0-4.8) Monocytes # (Auto) 1.0 x10^3/uL (0.0-1.1) Eosinophils # (Auto) 0.0 x10^3/uL (0.0-0.7) Basophils # (Auto) 0.0 x10^3/uL (0.0-0.2) Sodium Level 131 mmol/L (136-145) Potassium Level 4.1 mmol/L (3.5-5.1) Chloride Level 94 mmol/L (98-107) Carbon Dioxide Level 31 mmol/L (21-32) Anion Gap 6 (6-14) Blood Urea Nitrogen 14 mg/dL (8-26) Creatinine 0.6 mg/dL (0.7-1.3) Estimated GFR (Cockcroft-Gault) 146.4 Glucose Level 196 mg/dL (70-99) Calcium Level 9.3 mg/dL (8.5-10.1) Magnesium Level 2.3 mg/dL (1.8-2.4) Glucose (Fingerstick) 186 mg/dL (70-99) 164 mg/dL (70-99) 202 mg/dL (70-99) Test 05/11/17 17:37 05/11/17 21:23 05/11/17 23:37 05/12/17 02:50 Glucose (Fingerstick) 175 mg/dL (70-99) 208 mg/dL (70-99) 195 mg/dL (70-99) White Blood Count 15.2 x10^3/uL (4.0-11.0) Red Blood Count 3.99 x10^6/uL (4.30-5.70) Hemoglobin 11.4 g/dL (13.0-17.5) Hematocrit 34.1 % (39.0-53.0) Mean Corpuscular Volume 86 fL (79-100) Mean Corpuscular Hemoglobin 29 pg (25-35) Mean Corpuscular Hemoglobin Concent 34 g/dL (31-37) Red Cell Distribution Width 14.1 % (11.5-14.5) Platelet Count 333 x10^3/uL (140-400) Neutrophils (%) (Auto) 78 % (31-73) Lymphocytes (%) (Auto) 10 % (24-48) Monocytes (%) (Auto) 11 % (0-9) Eosinophils (%) (Auto) 0 % (0-3) Basophils (%) (Auto) 0 % (0-3) Neutrophils # (Auto) 11.8 x10^3uL (1.8-7.7) Lymphocytes # (Auto) 1.6 x10^3/uL (1.0-4.8) Monocytes # (Auto) 1.7 x10^3/uL (0.0-1.1) Eosinophils # (Auto) 0.0 x10^3/uL (0.0-0.7) Basophils # (Auto) 0.0 x10^3/uL (0.0-0.2) Sodium Level 133 mmol/L (136-145) Potassium Level 3.0 mmol/L (3.5-5.1) Chloride Level 96 mmol/L (98-107) Carbon Dioxide Level 32 mmol/L (21-32) Anion Gap 5 (6-14) Blood Urea Nitrogen 18 mg/dL (8-26) Creatinine 0.5 mg/dL (0.7-1.3) Estimated GFR (Cockcroft-Gault) 180.6 Glucose Level 70 mg/dL (70-99) Calcium Level 9.2 mg/dL (8.5-10.1) Magnesium Level 2.1 mg/dL (1.8-2.4) Test 05/12/17 07:40 05/12/17 11:07 Glucose (Fingerstick) 165 mg/dL (70-99) 180 mg/dL (70-99) Laboratory Tests Test 05/11/17 11:49 05/11/17 17:37 05/11/17 21:23 05/11/17 23:37 Glucose (Fingerstick) 202 mg/dL (70-99) 175 mg/dL (70-99) 208 mg/dL (70-99) 195 mg/dL (70-99) Test 05/12/17 02:50 05/12/17 07:40 05/12/17 11:07 White Blood Count 15.2 x10^3/uL (4.0-11.0) Red Blood Count 3.99 x10^6/uL (4.30-5.70) Hemoglobin 11.4 g/dL (13.0-17.5) Hematocrit 34.1 % (39.0-53.0) Mean Corpuscular Volume 86 fL (79-100) Mean Corpuscular Hemoglobin 29 pg (25-35) Mean Corpuscular Hemoglobin Concent 34 g/dL (31-37) Red Cell Distribution Width 14.1 % (11.5-14.5) Platelet Count 333 x10^3/uL (140-400) Neutrophils (%) (Auto) 78 % (31-73) Lymphocytes (%) (Auto) 10 % (24-48) Monocytes (%) (Auto) 11 % (0-9) Eosinophils (%) (Auto) 0 % (0-3) Basophils (%) (Auto) 0 % (0-3) Neutrophils # (Auto) 11.8 x10^3uL (1.8-7.7) Lymphocytes # (Auto) 1.6 x10^3/uL (1.0-4.8) Monocytes # (Auto) 1.7 x10^3/uL (0.0-1.1) Eosinophils # (Auto) 0.0 x10^3/uL (0.0-0.7) Basophils # (Auto) 0.0 x10^3/uL (0.0-0.2) Sodium Level 133 mmol/L (136-145) Potassium Level 3.0 mmol/L (3.5-5.1) Chloride Level 96 mmol/L (98-107) Carbon Dioxide Level 32 mmol/L (21-32) Anion Gap 5 (6-14) Blood Urea Nitrogen 18 mg/dL (8-26) Creatinine 0.5 mg/dL (0.7-1.3) Estimated GFR (Cockcroft-Gault) 180.6 Glucose Level 70 mg/dL (70-99) Calcium Level 9.2 mg/dL (8.5-10.1) Magnesium Level 2.1 mg/dL (1.8-2.4) Glucose (Fingerstick) 165 mg/dL (70-99) 180 mg/dL (70-99) Brief Hospital Course Mr. 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 WBC 22, better with IV levaquin, WBC 15 on dc last temp yesterday 100.8, Walking the halls, better. HGba1c was pending on dc (I ordered) , Need te obe on insulin 20 bid and lisinopril 10 as new med plus levaquin PO x 7 days Seen and examined COnsults; none dc 32 mins > 50% DM counselling Discharge Information Condition at Discharge: Improved, Stable Disposition/Orders: D/C to Home Scheduled Metformin Hcl (Metformin Hcl), 500 MG PO BIDWMEALS, (Reported) BRUNO ACOSTA MD May 12, 2017 11:33
[2017-05-12 12:00] VITALS: BP 109/66
== END 2017-05-12 14:17 | disposition home or self-care (01) | DRG 871 ==
LOC: ER 06:59 → 1 WEST ICU 07:50 → 4 NORTH 05-11 22:30
PROVIDERS: ADMIT Internal Medicine; ATTEND Internal Medicine
DX: A41.9 Sepsis, unspecified organism (principal); J18.9 Pneumonia, unspecified organism; E11.10 Type 2 diabetes mellitus with ketoacidosis without coma; E83.42 Hypomagnesemia; E87.1 Hypo-osmolality and hyponatremia; D75.89 Other specified diseases of blood and blood-forming organs; E87.6 Hypokalemia; I10 Essential (primary) hypertension; Z83.3 Family history of diabetes mellitus
CPT/HCPCS: 36415; 36600; 71010; 80048; 80053; 80076; 80307; 81001; 82553; 82805; 82962; 83036; 83605; 83690; 83735; 83880; 83930; 84100; 84132; 84443; 84484; 85007; 85025; 85610; 87040; 87086; 87641; 93005; 94250; 94640; 94760; 96365; 96367; 96368; G0480; J0456; J0690; J1815; J1956; J2060; J3010; J3480; J7030; J7050; J7620; 99291-25; G0479